=== PATIENT | female | born 1980 | race Caucasian/White ===

== ENCOUNTER 2025-06-15 21:54 | Inpatient (IN) | payer OTHER ==
[~2025-06-15] VITALS: Ht 165.1 cm; Wt 106.6 kg
[2025-06-15 23:06] LABS: COVID AG,FIA SOURCE NASAL SWAB
[2025-06-15 23:24] LABS: PLATELET COUNT (AUTO) 339 K/uL (150-450); RED BLOOD CELL COUNT(AUTO) 5.03 MIL/uL (4.00-5.20); RED CELL DISTRIBUTION WIDTH 17.4 % (11.5-14.5); WHITE BLOOD COUNT (AUTO) 12.4 K/uL (4.5-11.0)
[2025-06-15 23:33] LABS: CALCIUM, TOTAL 9.3 mg/dL (8.8-10.5); CREATININE 0.81 mg/dL (0.60-1.30); GLOMERULAR FILTR. RATE CALC > 60 mL/min (>60); GLUCOSE,RANDOM 121 mg/dL (70-110); SODIUM SERUM 138 mmol/L (136-145); UREA NITROGEN, BLOOD 14 mg/dL (7-18)
[2025-06-15 23:39] LABS: SARS-COV2 (COVID) ANTIGEN,FIA Negative (Negative)
[2025-06-16 01:22] LABS: APPEARANCE,URINE CLEAR (CLEAR); GLUCOSE, URINE (UA) NEGATIVE (NEGATIVE); LEUKOCYTE ESTERASE ,URINE SMALL (NEGATIVE); NITRATE,URINE POSITIVE (NEGATIVE); OCCULT BLOOD,URINE NEGATIVE (NEGATIVE); PH,URINE DRUG SCREEN 5.5 (5.0-8.0); SPECIFIC GRAVITIY, URINE 1.031 (1.003-1.030)
[2025-06-16 01:36] LABS: ALCOHOL, URINE DRUG SCREEN NEGATIVE (NEGATIVE); AMPHET/METH SCREEN,URINE NEGATIVE (NEGATIVE); BARBITURATE SCREEN, URINE NEGATIVE (NEGATIVE); CANNABINOID SCREEN,URINE POSITIVE (NEGATIVE); COCAINE SCREEN,URINE NEGATIVE (NEGATIVE); METHADONE SCREEN, URINE NEGATIVE (NEGATIVE)
[2025-06-16 01:39] LABS: SQUAMOUS EPITHELIAL CELL,UR Few /LPF (None Seen)
[2025-06-16 03:05] VITALS: O2SAT 100
[2025-06-16] MEDS: CEPHALEXIN MONOHYDRATE 500 MG CAPSULE PO ONE (03:39)
[2025-06-16 05:25] VITALS: BP 162/81; PULSE 78; RESP 17; O2SAT 99
[2025-06-16] MEDS ORDERED: INFLUENZA VIRUS VACCINE TVS (6MO+) 2025-26/PF 45 MCG/0.5 ML SYRINGE IM. ONE (05:30)
[2025-06-16 08:28] VITALS: BP 159/74; PULSE 67; RESP 17; TEMP 97.2; O2SAT 100
[2025-06-16] MEDS ORDERED: PETROLATUM,WHITE 28 GM JELLY TP PRN (08:45)
[2025-06-16] MEDS ORDERED: ALBUTEROL SULFATE HFA 90 MCG/PUFF 8 GM INHALER IH PRN (08:45)
[2025-06-16] MEDS ORDERED: OMEPRAZOLE 20 MG CAPSULE PO PRN (08:45)
[2025-06-16] MEDS ORDERED: LOPERAMIDE HCL 2 MG CAPSULE PO PRN (08:45)
[2025-06-16] MEDS ORDERED: MAGNESIUM HYDROXIDE SUSPENSION 30 ML UDCUP PO PRN (08:45)
[2025-06-16] MEDS ORDERED: MAG HYDROX/ALUMINUM HYD/SIMETH ES 30 ML SUSPENSION UDCUP PO PRN (08:45)
[2025-06-16] MEDS ORDERED: DOCUSATE SODIUM 100 MG CAPSULE PO PRN (08:45)
[2025-06-16] MEDS ORDERED: ACETAMINOPHEN 325 MG TABLET PO PRN (08:45)
[2025-06-16] MEDS ORDERED: BACITRACIN 28 GM OINTMENT TP PRN (08:45)
[2025-06-16] MEDS ORDERED: BENZOCAINE/MENTHOL [CEPACOL] LOZENGE PO PRN (08:45)
[2025-06-16] MEDS ORDERED: ONDANSETRON 4 MG TABLET PO PRN (08:45)
[2025-06-16] MEDS: LEVOTHYROXINE SODIUM 100 MCG TABLET PO SCH (09:25)
[2025-06-16] MEDS: DIVALPROEX SODIUM 500 MG DR TABLET PO SCH (16:33)
[2025-06-16 20:30] VITALS: BP 148/80; PULSE 75; RESP 18; TEMP 97.6; O2SAT 98
[2025-06-16] MEDS: ZOLPIDEM TARTRATE 10 MG TABLET PO PRN (20:55)
[2025-06-16 21:10] VITALS: BP 131/68
[2025-06-17 08:31] VITALS: BP 119/67; PULSE 101; RESP 18; TEMP 98; O2SAT 99
== END 2025-06-17 15:30 | disposition home or self-care (01) | DRG 881 ==
LOC: EMS 21:54 → B3A 06-16 01:19
PROVIDERS: ADMIT Psychiatry & Neurology Psychiatry; ATTEND Psychiatry & Neurology Psychiatry
DX: F32.9 Major depressive disorder, single episode, unspecified (principal); R45.851 Suicidal ideations; N39.0 Urinary tract infection, site not specified; E05.00 Thyrotoxicosis with diffuse goiter without thyrotoxic crisis or storm; E66.9 Obesity, unspecified; I10 Essential (primary) hypertension; F12.10 Cannabis abuse, uncomplicated; Z20.822 Contact with and (suspected) exposure to COVID-19; F41.9 Anxiety disorder, unspecified; G47.00 Insomnia, unspecified; K59.00 Constipation, unspecified; Z68.39 Body mass index [BMI] 39.0-39.9, adult
CPT/HCPCS: 80048; 80307; 81001; 84443; 85025; 87077; 87086; 87186; 99285; G0480